=== PATIENT | female | born 1980 | race Caucasian/White ===

== ENCOUNTER 2023-03-10 00:38 | Emergency (ER) | payer OTHER ==
[~2023-03-10] VITALS: Ht 160 cm; Wt 87.5 kg
[2023-03-10 00:45] VITALS: TEMP 97.9
[2023-03-10] MEDS ORDERED: LIDOCAINE 0.5% HCL 50 ML VIAL ONE (01:12)
[2023-03-10] MEDS ORDERED: TDAP [DIPH/PERTUSSIS/TET] 0.5 ML VIAL IM ONE (01:21)
[2023-03-10] MEDS: TDAP [DIPH/PERTUSSIS/TET] 0.5 ML VIAL IM ONE (01:31)
[2023-03-10 02:10] VITALS: BP 149/102; O2SAT 99
== END 2023-03-10 02:10 | disposition home or self-care (01) ==
LOC: ER 00:45
DX: S41.112A Laceration without foreign body of left upper arm, initial encounter (principal); Z59.00 Homelessness unspecified; W26.8XXA Contact with other sharp object(s), not elsewhere classified, initial encounter; Y93.89 Activity, other specified; Y92.89 Other specified places as the place of occurrence of the external cause; Y99.8 Other external cause status
CPT/HCPCS: 12004; 90471; 90715; 99283; J3490